=== PATIENT | female | born 1985 | race Caucasian/White ===

== ENCOUNTER 2019-05-21 11:56 | Inpatient (IN) | payer BC ==
[2019-05-21] MEDS ORDERED: Buffered Lidocaine 1% SYRIN* 1 ML/SYRINGE INTRADERM ONE (13:06)
--- NOTE | 2019-05-21 13:11 | HP ---
General Information - Reason for Visit pt with high risk due to gastric bypass and significant anemia. induction at 39 weeks planned - General Information Maternal Age: 33 Grav: 3 Para: 1 SAB: 1 IEA: 0 Estimated Due Date: 05/28/19 Determined By: LMP Maternal Blood Type and Rh: A Positive - Results this Serology/RPR Result: Non-Reactive Rubella Result: Immune HBsAg Result: Negative HIV Result: Negative GBS Culture Result: Negative Past Medical History Delivery History: Hx Uncomplicated Vaginal Delivery Pertinent Past Medical History: See Records Pertinent Past Surgical History: See Records Pertinent Family History: Non-Contributory - Antepartal Records Antepartal Records: Reviewed, Complicated by: - anemia and iv iron therapy Review of Systems Constitutional: Comfortable Genitourinary: No Bleeding, No Leaking Fluid Musculoskeletal: No Complaint Neurological: No Headache Movement: Normal Exam Allergies/Adverse Reactions: Allergies APPLES Allergy (Severe, Uncoded 09/21/15 05:23) FACE SWELLS - Measurements Height: 5 ft 5 in Weight: 186 lb Weight in lbs: [id number] Body Mass Index (BMI): 30.9 Pre- Weight: 152 lb Weight Gained This : 34 lbs and 0 ozs - Exam Extremities: No Edema Heart: Normal Rhythm/Heart Sounds HEENT: No Significant Findings Lungs: Clear Bilaterally Rectal: Rectal Exam Deferred Reflexes: DTR 2+ Targeted Exam Findings Cervical Exam: 3cm Effacement: 80% Station: -2 Presenting Part: Vertex Membrane Status: AROM EFM Findings - External Monitor Findings Baseline Heart Rate: 130 External Monitor Findings: Accelerations Present, Variability Moderate Contractions: None Assessment/Plan - Assessment for induction at 39 weeks - Obstetrical Risk Factors Obstetrical Risk Factors: Obesity - Plan Plan: Induction, Admit - Anticipate Vaginal Delivery
[2019-05-21] MEDS: Lactated Ringers 1000 ML Bag* 1,000 ML IV ONE ×2 (13:34→13:35)
[2019-05-21] MEDS: Oxytocin in LR* 20 UNITS/1,000 ML BAG IVPB ONE (13:35)
[2019-05-21] MEDS ORDERED: Oxytocin in LR* 20 UNITS/1,000 ML BAG IVPB SCH ×2 (14:00→18:00)
[2019-05-21] MEDS ORDERED: Lactated Ringers 1000 ML Bag* 1,000 ML IV SCH ×3 (14:00→18:00)
[2019-05-21 14:11] LABS: ABS Lymphocytes 1.8 10^3/ul (1.0-4.8); ABS Monocytes 0.7 10^3/ul (0-0.8); ABS Neutrophils 8.3 10^3/ul (1.5-7.7); Eosinophil % 0.2 %; Hematocrit 40 % (35-47); Hemoglobin 13.4 g/dL (12.0-16.0); Lymphocyte % 16.9 %; Mean Corpuscular HGB Conc 34 g/dL (31-36); Mean Corpuscular Hemoglobin 29 pg (27-31); Mean Corpuscular Volume 85 fL (80-97); Mean Platelet Volume 9.6 fL (7.4-10.4); Nucleated Red Blood Cells % 0.2; Platelet Count 162 10^3/uL (150-450); Red Blood Count 4.67 10^6 /uL (3.70-4.87); Red Cell Distribution Width 22 % (10-15); White Blood Count 10.9 10^3/uL (3.5-10.8)
[2019-05-21 14:35] LABS: Urine Benzodiazepine Screen None Detected (None Detect); Urine Opiates Screen None Detected (None Detect)
[2019-05-21] MEDS ORDERED: Lidocaine 1.5% EPI 1:200,000* 30 ML SDV ONE (14:38)
[2019-05-21] MEDS ORDERED: OBEPIDURAL* 250 ML EPIDURAL ONE (14:39)
[2019-05-21] MEDS ORDERED: Famotidine TAB* 20 MG PO PRN (15:40)
[2019-05-21] MEDS ORDERED: Lactated Ringers 1000 ML Bag* 1,000 ML IV ONE (15:40)
[2019-05-21] MEDS ORDERED: Sodium Citrate/Citric Acid* 15 ML UDC PO PRN (15:40)
[2019-05-21] MEDS ORDERED: Phenylephrine 40 MCG/ML SYRINGE IV PUSH PRN (15:40)
[2019-05-21] MEDS ORDERED: OBEPIDURAL* 250 ML EPIDURAL SCH (16:00)
[2019-05-21] MEDS ORDERED: Dibucaine 1% 28.35 GM TUBE PR PRN (17:43)
[2019-05-21] MEDS ORDERED: Acetaminophen TAB* 325 MG PO PRN (17:43)
[2019-05-21] MEDS ORDERED: Ibuprofen TAB* 600 MG PO PRN (17:43)
[2019-05-21] MEDS ORDERED: Witch Hazel PAD* JAR TOPICAL PRN (17:43)
[2019-05-21] MEDS ORDERED: Glycerin ADULT SUPP PR PRN (17:43)
[2019-05-21] MEDS ORDERED: Lidocaine 1% INJ* 10 MG/ML 30 ML SDV ONE (20:35)
[2019-05-21] MEDS ORDERED: Simethicone TAB* 80 MG TAB.CHEW PO SCH (21:00)
[2019-05-22] MEDS: Docusate CAP* 100 MG PO SCH ×3 (00:10→14:28)
[2019-05-22 07:00] LABS: Hematocrit 35 % (35-47); Hemoglobin 11.8 g/dL (12.0-16.0); Mean Corpuscular HGB Conc 34 g/dL (31-36); Mean Corpuscular Hemoglobin 29 pg (27-31); Mean Corpuscular Volume 86 fL (80-97); Mean Platelet Volume 9.2 fL (7.4-10.4); Platelet Count 131 10^3/uL (150-450); Red Blood Count 4.09 10^6 /uL (3.70-4.87); Red Cell Distribution Width 22 % (10-15); White Blood Count 8.4 10^3/uL (3.5-10.8)
[2019-05-22 08:01] LABS: ABS Lymphocytes 1.6 10^3/ul (1.0-4.8); ABS Monocytes 0.6 10^3/ul (0-0.8); ABS Neutrophils 6.1 10^3/ul (1.5-7.7); Eosinophil % 0.3 %; Lymphocyte % 19.2 %
[2019-05-22] MEDS ORDERED: Ferrous Gluconate TAB* 324 MG TAB PO SCH (09:00)
--- NOTE | 2019-05-22 09:01 | PROCNOTE ---
[facility] OB: Delivery Note - Delivery A Date of : 05/21/19 Time of : 17:28 Weight at : 6 lb 14 oz Score 1 Minute: 8 Score 5 Minutes: 9 Gestational Age in Weeks and Days at Delivery: 39 Weeks and 0 Days Delivery Method: Spontaneous Vaginal Labor: Induced Did Patient attempt ?: N/A, No Previous Amniotic Fluid: Clear Estimated Blood Loss: 100 Anesthesia/Analgesia: CEI for Labor Delivered By: Bob Laura - Nursery Level of Nursery: Regular/Bedside - Perineum Perineal Injury: 2nd Degree - Events Delivery Events of Note: Pitocin During Labor - Risk for Falls Other Risk for Falls: none
[2019-05-22 16:55] VITALS: BP 121/52
== END 2019-05-22 19:02 | disposition home or self-care (01) | DRG 560 ==
LOC: MCHOBOUT 11:56 → MCHOB 13:13
PROVIDERS: ADMIT Obstetrics & Gynecology; ATTEND Obstetrics & Gynecology
PROC: 10E0XZZ Delivery of Products of Conception, External Approach (ICD-10-PCS; principal; 2019-05-21)
PROC: 0KQM0ZZ Repair Perineum Muscle, Open Approach (ICD-10-PCS; 2019-05-21)
PROC: 4A1HXCZ Monitoring of Products of Conception, Cardiac Rate, External Approach (ICD-10-PCS; 2019-05-21)
PROC: 10907ZC Drainage of Amniotic Fluid, Therapeutic from Products of Conception, Via Natural or Artificial Opening (ICD-10-PCS; 2019-05-21)
PROC: 3E033VJ Introduction of Other Hormone into Peripheral Vein, Percutaneous Approach (ICD-10-PCS; 2019-05-21)
DX: O99.844 Bariatric surgery status complicating childbirth (principal); Z37.0 Single live birth; Z3A.39 39 weeks gestation of pregnancy; O99.214 Obesity complicating childbirth; O70.1 Second degree perineal laceration during delivery; Z87.442 Personal history of urinary calculi; Z91.018 Allergy to other foods
CPT/HCPCS: 36415; 80307; 85025; 86850; 86900; 86901; A9270-GY